=== PATIENT | female | born 1975 | race Caucasian/White ===

== ENCOUNTER 2023-06-22 16:08 | Inpatient (IN) ==
[2023-06-22 18:48] LABS: Urine Appearance Cloudy; Urine Bilirubin Negative (Negative); Urine Blood 3+ (Negative); Urine Color Straw; Urine Glucose Negative (Negative); Urine Ketones Negative (Negative); Urine Nitrite Negative (Negative); Urine Protein 1+(30 mg/dL) (Negative); Urine Specific Gravity 1.006 (1.002-1.030); Urine Urobilinogen Negative (Negative)
[2023-06-22 18:49] LABS: ABS Eosinophils 0.3 10^3/uL (0.0-0.5); ABS Lymphocytes 1.2 10^3/uL (1.0-4.8); ABS Monocytes 0.3 10^3/uL (0.0-0.9); Eosinophil % 5.4 %; Hematocrit 29.6 % (35-45); Hemoglobin 9.3 g/dL (11.5-14.3); Lymphocyte % 25.6 %; Mean Corpuscular Hemoglobin 23.5 pg (27-33); Mean Corpuscular Hgb Conc 31.5 g/dL (31-36); Mean Corpuscular Volume 74.7 fL (80-97); Mean Platelet Volume 8.6 fL (7.5-11.2); Platelet Count 220 10^3/uL (150-450); Red Blood Count 3.96 10^6/uL (3.63-4.92); White Blood Count 4.8 10^3/uL (3.8-11.8)
[2023-06-22 18:54] LABS: Urine Bacteria 1+ (Absent); Urine Red Blood Cell 3+(>10/hpf) (Absent); Urine Squamous Epithelial Cell Present (Absent); Urine White Blood Cell Absent (Absent)
[2023-06-22 19:03] LABS: Albumin 3.2 g/dL (3.2-5.2); Albumin/Globulin Ratio 0.8 (1-3); C Reactive Protein 19.15 mg/L (<8.01); Calcium 8.7 mg/dL (8.6-10.3); Creatinine, Serum 1.05 mg/dL (0.51-0.95); Globulin 3.8 g/dL (2-4); Potassium 4.3 mmol/L (3.5-5.0); Total Bilirubin 0.2 mg/dL (0.2-1.0); eGFR CKD-EPI 66.8 (>60)
[2023-06-22 19:34] LABS: INR 1.05 (0.83-1.13)
[2023-06-22] MEDS ORDERED: Piperacillin/Tazobac 3.375 BAG 3.375 GM/100 ML BAG IV ONE (19:51)
[2023-06-22] MEDS ORDERED: Vancomycin 1,500 MG in NS 0.9% 250 ml 250 ML IVPB ONE (19:51)
[2023-06-22 20:32] LABS: High Sensitivity Troponin 1 Hr 6 pg/mL (<15)
[2023-06-22] MEDS ORDERED: Vancomycin 2,000 MG in NS 0.9% 500 ml BAG 500 ML IVPB ONE (21:00)
[2023-06-22] MEDS ORDERED: NS 0.9% 1000 ml BAG 1,000 ML IV ONE (21:27)
[2023-06-22] MEDS ORDERED: Iohexol 350 (CONTRAST) 500 ML MDV IV ONE (21:40)
[2023-06-22] MEDS ORDERED: Dextrose 50% Syringe 50 ml 25 GM/50 ML SYRINGE IV PUSH PRN (23:57)
[2023-06-23] MEDS ORDERED: Senna TAB 8.6 mg TAB PO PRN
[2023-06-23] MEDS ORDERED: Albuterol HFA INHALER 8 gm MDI INH PRN
[2023-06-23] MEDS ORDERED: Vancomycin per Pharmacy 1 EA NOTE FOLLOW UP PRN (00:51)
[2023-06-23] MEDS ORDERED: Enoxaparin 40 MG/0.4 ML SYR SUBCUT SCH (01:00)
[2023-06-23] MEDS ORDERED: Zosyn per Pharmacy NOTE FOLLOW UP SCH (01:00)
[2023-06-23] MEDS ORDERED: Dextrose 50% Syringe 50 ml 25 GM/50 ML SYRINGE IV PUSH PRN (01:16)
[2023-06-23] MEDS: ZOSYN 3.375 GM Q8H per EXTENDED INFUSION IV SCH ×2 (02:29→11:10)
[2023-06-23] MEDS ORDERED: Vancomycin 2,000 MG in NS 0.9% 500 ml BAG 500 ML IVPB SCH (05:00)
[2023-06-23 07:49] LABS: Calcium 7.7 mg/dL (8.6-10.3); Creatinine, Serum 1.08 mg/dL (0.51-0.95); Magnesium 1.8 mg/dL (1.9-2.7); Potassium 4.3 mmol/L (3.5-5.0); eGFR CKD-EPI 64.6 (>60)
[2023-06-23] MEDS ORDERED: Insulin GLARGINE 100 un/ml 10 ml VIAL SUBCUT SCH (09:00)
[2023-06-23] MEDS: Aspirin EC 81 mg TAB.EC (enteric coated) PO SCH (09:10)
[2023-06-23] MEDS: Enoxaparin 40 MG/0.4 ML SYR SUBCUT SCH ×2 (09:10→20:42)
[2023-06-23] MEDS: Vancomycin 1,500 MG in NS 0.9% 250 ml 250 ML IVPB SCH ×3 (09:12→23:57)
[2023-06-23 09:44] LABS: Hematocrit 23.4 % (35-45); Hemoglobin 7.5 g/dL (11.5-14.3); Mean Corpuscular Hemoglobin 23.8 pg (27-33); Mean Corpuscular Volume 74.4 fL (80-97); Mean Platelet Volume 8.7 fL (7.5-11.2); Platelet Count 176 10^3/uL (150-450); Red Blood Count 3.14 10^6/uL (3.63-4.92); Red Cell Distribution Width 22.2 % (12-17); White Blood Count 4.8 10^3/uL (3.8-11.8)
[2023-06-23] MEDS ORDERED: ZOSYN 3.375 GM Q8H per EXTENDED INFUSION IV SCH (19:00)
[2023-06-24] MEDS: ZOSYN 3.375 GM Q8H per EXTENDED INFUSION IV SCH ×3 (04:58→20:09)
[2023-06-24] MEDS ORDERED: Vancomycin Trough Check NOTE FOLLOW UP ONE (08:30)
[2023-06-24 09:18] LABS: ABS Eosinophils 0.2 10^3/uL (0.0-0.5); ABS Lymphocytes 1.3 10^3/uL (1.0-4.8); ABS Monocytes 0.4 10^3/uL (0.0-0.9); ABS Neutrophils 3.5 10^3/uL (1.5-7.6); Eosinophil % 3.8 %; Hematocrit 25.1 % (35-45); Lymphocyte % 24.5 %; Mean Corpuscular Hemoglobin 23.6 pg (27-33); Mean Corpuscular Volume 73.8 fL (80-97); Mean Platelet Volume 8.8 fL (7.5-11.2); Platelet Count 197 10^3/uL (150-450); Red Cell Distribution Width 21.5 % (12-17); White Blood Count 5.5 10^3/uL (3.8-11.8)
[2023-06-24] MEDS: Enoxaparin 40 MG/0.4 ML SYR SUBCUT SCH ×2 (09:27→20:05)
[2023-06-24] MEDS: Aspirin EC 81 mg TAB.EC (enteric coated) PO SCH (09:30)
[2023-06-24 09:34] LABS: C Reactive Protein 9.06 mg/L (<8.01); Calcium 8.1 mg/dL (8.6-10.3); Creatinine, Serum 0.86 mg/dL (0.51-0.95); Potassium 4.2 mmol/L (3.5-5.0); eGFR CKD-EPI 84.8 (>60)
[2023-06-24] MEDS: Vancomycin 1,500 MG in NS 0.9% 250 ml 250 ML IVPB SCH (09:47)
[2023-06-24] MEDS: Vancomycin 1,250 MG in NS 0.9% 250 ml 250 ML IVPB SCH (12:46)
[2023-06-25] MEDS: Vancomycin 1,250 MG in NS 0.9% 250 ml 250 ML IVPB SCH ×2 (01:00→11:58)
[2023-06-25] MEDS: ZOSYN 3.375 GM Q8H per EXTENDED INFUSION IV SCH ×3 (03:09→19:45)
[2023-06-25] MEDS: Aspirin EC 81 mg TAB.EC (enteric coated) PO SCH (08:27)
[2023-06-25] MEDS: Enoxaparin 40 MG/0.4 ML SYR SUBCUT SCH ×2 (08:28→21:32)
[2023-06-26] MEDS: Vancomycin 1,250 MG in NS 0.9% 250 ml 250 ML IVPB SCH ×2 (00:14→13:18)
[2023-06-26] MEDS: ZOSYN 3.375 GM Q8H per EXTENDED INFUSION IV SCH ×2 (03:26→11:46)
[2023-06-26] MEDS: Enoxaparin 40 MG/0.4 ML SYR SUBCUT SCH ×2 (09:41→21:11)
[2023-06-26] MEDS: Aspirin EC 81 mg TAB.EC (enteric coated) PO SCH (09:42)
[2023-06-26] MEDS ORDERED: Vancomycin Trough Check NOTE FOLLOW UP ONE (11:30)
[2023-06-26] MEDS: metroNIDAZOLE IV 500 MG/100ML 500 MG/100 ML BAG IVPB SCH ×2 (12:20→21:13)
[2023-06-26] MEDS: Cefepime 2 GM in Dextrose 2 GM/50 ML BAG IV SCH (12:20)
[2023-06-27] MEDS: Cefepime 2 GM in Dextrose 2 GM/50 ML BAG IV SCH (00:42)
[2023-06-27] MEDS: metroNIDAZOLE IV 500 MG/100ML 500 MG/100 ML BAG IVPB SCH (04:48)
[2023-06-27] MEDS ORDERED: Vancomycin Random Level NOTE FOLLOW UP ONE (06:00)
[2023-06-27 06:03] VITALS: BP 147/86
[2023-06-27 07:34] LABS: Creatinine, Serum 0.81 mg/dL (0.51-0.95); Vancomycin Random 13.5 mcg/mL; eGFR CKD-EPI 91.2 (>60)
[2023-06-27] MEDS: Aspirin EC 81 mg TAB.EC (enteric coated) PO SCH (08:06)
[2023-06-27] MEDS: Enoxaparin 40 MG/0.4 ML SYR SUBCUT SCH ×2 (08:06→08:10)
[2023-06-27] MEDS ORDERED: Vancomycin 2,000 MG in NS 0.9% 500 ml BAG 500 ML IVPB ONE (09:00)
[2023-06-28] MEDS ORDERED: Vancomycin Random Level NOTE FOLLOW UP ONE (06:00)
== END 2023-06-27 08:35 | disposition home or self-care (01) | DRG 383 ==
LOC: ED 16:08 → EDHOLD 16:08 → SUATTDRO 23:30 → MED 06-23 18:38 → SUATTDRO 06-24 15:31
PROVIDERS: ADMIT Internal Medicine; ATTEND Student in an Organized Health Care Education/Training Program

== ENCOUNTER 2024-03-26 09:07 | Inpatient (IN) ==
[2024-03-26 10:16] LABS: Hematocrit 31.6 % (35-45); Hemoglobin 10.3 g/dL (11.5-14.3); Mean Corpuscular Hemoglobin 27.9 pg (27-33); Mean Corpuscular Hgb Conc 32.5 g/dL (31-36); Mean Platelet Volume 9.9 fL (7.5-11.2); Platelet Count 278 10^3/uL (150-450); Red Blood Count 3.68 10^6/uL (3.63-4.92); Red Cell Distribution Width 15.7 % (12-17); White Blood Count 16.2 10^3/uL (3.8-11.8)
[2024-03-26 10:32] LABS: INR 1.02 (0.85-1.14)
[2024-03-26 10:40] LABS: High Sens Troponin Baseline 48 pg/mL (<15)
[2024-03-26 10:48] LABS: ABS Basophils 0.1 10^3/uL (0.0-0.1); ABS Eosinophils 0.1 10^3/uL (0.0-0.5); ABS Monocytes 1.2 10^3/uL (0.0-0.9); ABS Neutrophils 12.9 10^3/uL (1.5-7.6); Eosinophil % 0.4 %; Lymphocyte % 12.1 %
[2024-03-26 10:54] LABS: Urine Appearance Turbid; Urine Bilirubin Negative (Negative); Urine Blood 2+ (Negative); Urine Color Light-Yellow; Urine Glucose Negative (Negative); Urine Ketones Negative (Negative); Urine Nitrite Negative (Negative); Urine Protein Negative (Negative); Urine Specific Gravity 1.012 (1.002-1.030); Urine Urobilinogen Negative (Negative)
[2024-03-26 11:04] LABS: Urine Bacteria 3+ /HPF (Absent); Urine Red Blood Cell 1+(3-5/hpf) /HPF (0-Trace); Urine Squamous Epithelial Cell Present /HPF (Absent); Urine White Blood Cell Trace(0-5/hpf) /HPF (0-Trace)
[2024-03-26] MEDS: Piperacillin/Tazobac 3.375 BAG 3.375 GM/100 ML BAG IV ONE (11:08)
[2024-03-26 11:47] LABS: Anion Gap 11 mmol/L (2-16); CO2 Carbon Dioxide 30 mmol/L (22-32); Calcium 9.5 mg/dL (8.6-10.3); Chloride 95 mmol/L (101-111); Glucose 229 mg/dL (70-100); Sodium 136 mmol/L (135-145)
[2024-03-26 11:48] LABS: ALT 41 U/L (7-52); Albumin 3.4 g/dL (3.2-5.2); Albumin/Globulin Ratio 0.9 (1-3); Alkaline Phosphatase 90 U/L (35-149); C Reactive Protein 46.26 mg/L (<8.01); Creatinine, Serum 1.68 mg/dL (0.51-0.95); Globulin 3.6 g/dL (2-4); Total Bilirubin 0.3 mg/dL (0.2-1.0); eGFR CKD-EPI 37.8 (>60)
[2024-03-26 11:53] LABS: High Sensitivity Troponin 1 Hr 44 pg/mL (<15)
[2024-03-26 11:57] LABS: Blood Urea Nitrogen > 120 mg/dL (6-24)
[2024-03-26] MEDS: Vancomycin 1,000 MG in NS 0.9% 250 ml 250 ML IVPB ONE (12:29)
[2024-03-26] MEDS ORDERED: Magnesium Hydroxide LIQ 30 ML UDC PO PRN (13:41)
[2024-03-26] MEDS ORDERED: Polyethylene Glycol 3350 17 GM PACKET PO PRN (13:41)
[2024-03-26] MEDS ORDERED: Piperacillin/Tazobac 3.375 BAG 3.375 GM/100 ML BAG IV ONE (14:25)
[2024-03-26 14:37] LABS: Potassium Redraw 4.4 mmol/L (3.5-5.0)
[2024-03-26] MEDS ORDERED: Dextrose 50% Syringe 50 ml 25 GM/50 ML SYRINGE IV PUSH PRN (14:51)
[2024-03-26] MEDS ORDERED: Vancomycin 1,000 MG in NS 0.9% 250 ml 250 ML IVPB ONE (14:52)
[2024-03-26] MEDS ORDERED: Albuterol HFA INHALER 8 gm MDI INH PRN (14:53)
[2024-03-26] MEDS ORDERED: Zosyn per Pharmacy NOTE FOLLOW UP SCH (15:00)
[2024-03-26] MEDS ORDERED: Vancomycin per Pharmacy 1 EA NOTE FOLLOW UP SCH (15:00)
[2024-03-26] MEDS: NS 0.9% 1000 ml BAG 1,000 ML IV ONE (15:20)
[2024-03-26] MEDS: ZOSYN 3.375 GM Q8H per EXTENDED INFUSION IV SCH (16:46)
[2024-03-26] MEDS: Heparin 5000 UNITS/ML 1 mL VIAL SUBCUT SCH (16:46)
[2024-03-26] MEDS: Albuterol/Ipratropium NEB.SOL (2.5/0.5 MG) 3 ML NEB.SOLN INH SCH (17:53)
[2024-03-26] MEDS: NS 0.9% 1000 ml BAG 1,000 ML IV SCH (18:36)
[2024-03-26] MEDS: Vancomycin 1,250 MG in NS 0.9% 250 ml 250 ML IVPB SCH (23:13)
[2024-03-26] MEDS: Mupirocin 2% OINT TUBE TOPICAL SCH (23:37)
[2024-03-27] MEDS ORDERED: Albuterol/Ipratropium NEB.SOL (2.5/0.5 MG) 3 ML NEB.SOLN INH PRN (00:08)
[2024-03-27] MEDS: ZOSYN 3.375 GM Q8H per EXTENDED INFUSION IV SCH ×2 (01:53→20:19)
[2024-03-27 06:14] LABS: ABS Basophils 0.1 10^3/uL (0.0-0.1); ABS Eosinophils 0.1 10^3/uL (0.0-0.5); ABS Lymphocytes 1.2 10^3/uL (1.0-4.8); ABS Neutrophils 12.1 10^3/uL (1.5-7.6); ABS Nucleated RBC 0.01 10^3/ul; Eosinophil % 0.9 %; Hematocrit 28.4 % (35-45); Hemoglobin 9.3 g/dL (11.5-14.3); Lymphocyte % 8.2 %; Mean Corpuscular Hemoglobin 28.3 pg (27-33); Mean Corpuscular Hgb Conc 32.9 g/dL (31-36); Mean Corpuscular Volume 86.1 fL (80-97); Mean Platelet Volume 9.5 fL (7.5-11.2); Nucleated Red Blood Cells % 0.1 %/100WBC (0.0-0.8); Platelet Count 220 10^3/uL (150-450); Red Cell Distribution Width 15.6 % (12-17); White Blood Count 14.5 10^3/uL (3.8-11.8)
[2024-03-27 07:51] LABS: Calcium 8.7 mg/dL (8.6-10.3); Creatinine, Serum 1.3 mg/dL (0.51-0.95); Potassium 4.2 mmol/L (3.5-5.0); eGFR CKD-EPI 51.4 (>60)
[2024-03-27] MEDS: Insulin GLARGINE 100 un/ml 10 ml VIAL SUBCUT SCH (08:11)
[2024-03-27] MEDS: Heparin 5000 UNITS/ML 1 mL VIAL SUBCUT SCH (23:17)
[2024-03-28 08:56] LABS: ABS Basophils 0.1 10^3/uL (0.0-0.1); ABS Eosinophils 0.1 10^3/uL (0.0-0.5); ABS Lymphocytes 1.4 10^3/uL (1.0-4.8); ABS Monocytes 0.8 10^3/uL (0.0-0.9); ABS Neutrophils 13.6 10^3/uL (1.5-7.6); ABS Nucleated RBC 0.01 10^3/ul; Eosinophil % 0.6 %; Hemoglobin 9.4 g/dL (11.5-14.3); Lymphocyte % 8.9 %; Mean Corpuscular Hemoglobin 27.9 pg (27-33); Mean Corpuscular Hgb Conc 32.6 g/dL (31-36); Mean Corpuscular Volume 85.5 fL (80-97); Mean Platelet Volume 9.2 fL (7.5-11.2); Nucleated Red Blood Cells % 0.1 %/100WBC (0.0-0.8); Platelet Count 212 10^3/uL (150-450); Red Blood Count 3.39 10^6/uL (3.63-4.92); Red Cell Distribution Width 15.8 % (12-17)
[2024-03-28 09:58] LABS: Creatinine, Serum 0.95 mg/dL (0.51-0.95); Vancomycin Trough 21.4 mcg/mL; eGFR CKD-EPI 74.8 (>60)
[2024-03-28 10:00] LABS: Calcium 8.2 mg/dL (8.6-10.3); Creatinine, Serum 0.92 mg/dL (0.51-0.95); Potassium 3.9 mmol/L (3.5-5.0); eGFR CKD-EPI 77.8 (>60)
[2024-03-28] MEDS: Vancomycin Trough Check NOTE FOLLOW UP ONE (11:53)
[2024-03-28] MEDS: Insulin GLARGINE 100 un/ml 10 ml VIAL SUBCUT ONE (12:12)
[2024-03-29 05:55] LABS: ABS Eosinophils 0.2 10^3/uL (0.0-0.5); ABS Lymphocytes 1.1 10^3/uL (1.0-4.8); ABS Monocytes 0.5 10^3/uL (0.0-0.9); Eosinophil % 1.6 %; Hematocrit 29.8 % (35-45); Hemoglobin 9.5 g/dL (11.5-14.3); Lymphocyte % 9.5 %; Mean Corpuscular Hemoglobin 27.7 pg (27-33); Mean Corpuscular Hgb Conc 31.8 g/dL (31-36); Mean Platelet Volume 9.3 fL (7.5-11.2); Platelet Count 203 10^3/uL (150-450); Red Blood Count 3.43 10^6/uL (3.63-4.92); Red Cell Distribution Width 15.8 % (12-17); White Blood Count 11.8 10^3/uL (3.8-11.8)
[2024-03-29 06:37] LABS: Calcium 8.3 mg/dL (8.6-10.3); Creatinine, Serum 0.98 mg/dL (0.51-0.95); Potassium 3.8 mmol/L (3.5-5.0); eGFR CKD-EPI 72.1 (>60)
[2024-03-29] MEDS: Insulin GLARGINE 100 un/ml 10 ml VIAL SUBCUT SCH (08:13)
[2024-03-29] MEDS: Potassium Chlor 20 meq TAB.ER PO ONE (08:17)
[2024-03-29 09:44] VITALS: BP 140/90
== END 2024-03-29 10:21 | DRG 720 ==
LOC: ED 09:07 → EDHOLD 13:50 → SUATTDRO 13:50 → MED 21:32
PROVIDERS: ADMIT Internal Medicine; ATTEND Internal Medicine